=== PATIENT | male | born 1940 | race Caucasian/White ===

== ENCOUNTER → 2018-08-08 | Outpatient (CLI) | payer MEDICARE | LOC: M.RAD 15:38 | DX: M47.899 Other spondylosis, site unspecified (principal); L92.9 Granulomatous disorder of the skin and subcutaneous tissue, unspecified; J02.9 Acute pharyngitis, unspecified ==

== ENCOUNTER 2019-09-04 16:41 | Inpatient (IN) | payer MEDICARE ==
[~2019-09-04] VITALS: Ht 185.4 cm; Wt 109.7 kg
[2019-09-04 16:45] VITALS: BP 158/119
[2019-09-04 17:11] LABS: ABSOLUTE BASOPHILS 0.1 thou/uL (0.0-0.2); ABSOLUTE EOSINOPHILS 0.1 thou/uL (0.0-0.7); ABSOLUTE MONOCYTES 0.8 thou/uL (0.0-1.2); ABSOLUTE NEUTROPHILS 3.7 thou/uL (1.6-8.1); BASOPHILS 1.2 %; HEMATOCRIT 47.7 % (42.0-52.0); HEMOGLOBIN 16.3 gm/dL (14.0-18.0); LYMPHOCYTES 17.9 %; MCH 32.5 pg (26.0-34.0); MCHC 34.2 g/dL (28.0-37.0); MCV 95.1 fL (80.0-100.0); MONOCYTES 13.9 %; MPV 9.5 fl. (7.2-11.1); NUCLEATED RBCS 0 /100WBC; PLATELET COUNT* 150 thou/uL (150-400); RBC 5.01 mil/uL (4.50-6.00); RDW-CV 13.8 % (10.5-14.5); WBC 5.6 thou/uL (4.0-11.0)
[2019-09-04 17:22] LABS: APTT 27.7 Seconds (25.0-31.3); PROTIME 10.7 Seconds (9.20-11.50)
[2019-09-04 17:23] LABS: CALCIUM 8.4 mg/dL (8.5-10.1); CREATININE 1.1 mg/dL (0.6-1.3); POTASSIUM 4.4 mmol/L (3.5-5.1)
[2019-09-04 17:37] LABS: ALBUMIN 3.8 g/dL (3.4-5.0); CK-MB MASS 3.8 ng/mL (<0.5-3.6); MAGNESIUM 2.1 mg/dL (1.8-2.4); TOTAL PROTEIN 7.3 g/dL (6.4-8.2)
[2019-09-04 19:45] VITALS: BP 159/119
[2019-09-04 20:00] VITALS: BP 163/115; BP 171/122
[2019-09-05] VITALS (7 sets, daily range): BP systolic 127–158; BP diastolic 88–108
--- NOTE | 2019-09-05 04:16 | NUR ---
RECEIVED PT FROM ED PER CART AT APPROX 195. PT IS AWAKE AND ORIENTED X4, CAN BE FORGETFUL AT TIMES. 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 PT DENIES CHEST PAIN OF THIS TIME-STATED HE FEELS A LITTLE PRESSURE IN THE CHEST THAT IS BETTER THAN WHAT IT WAS. ADMISSION ASSESSMENT DONE AND CHARTED. PT IS ADVISED ON THE USE OF CALL LIGHT AND ON THE ROOM SET UP. PT IS ADVISED TO HAVE NOTHING BY MOUTH PER CARDIOLOGY. CALL LIGHT WITHIN REACH. HOURLY ROUNDING DONE FOR PT SAFETY. FALL PRECAUTIONS IN PLACE.
[2019-09-05 05:21] LABS: CHOLESTEROL 140 mg/dL (<200); HDL CHOLESTEROL 23 mg/dL (>40); LDL CHOLESTEROL 75 mg/dL (<100); TC:HDL 6.1 Ratio (Not establshd); TRIGLYCERIDE 213 mg/dL (<150); VLDL 43 mg/dL (<40)
[2019-09-05 05:28] LABS: SERUM ASSESSMENT Clear
--- NOTE | 2019-09-05 11:05 | EKG ---
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 : 1940 Requested By: Geoffrey Freitas Order Number: [id number] MD: Jonathan Pan Measurements Intervals [place] Rate: 115 P: 94 WI: 119 QRS: -18 QRSD: 92 T: 58 QT: 374 QTc: 518 Interpretive Statements atrial tachycardia Borderline left axis deviation Prolonged QT interval Baseline wander in lead(s) V3,V5 No previous ECG available for comparison Electronically Signed On 09-05-2019 11:04:03 COMMERCIAL CRABBER by Jonathan Pan [email or web address] <ELECTRONICALLY SIGNED> By: Jonathan Pan MD, FAC 09/05/19 1104 1646 1646 Jonathan Pan MD, [facility] /EPI
--- NOTE | 2019-09-05 11:28 | 2DMMODE ---
[place] [address] 2 D/M-MODE ECHOCARDIOGRAM Name: CALVILLOGIACOMO H Room: [address] IN [facility]#: [id number] Admission: 09/04/19 Attend Phys: Augie Thorne, Discharge: Date of : 40 Date of Service: 09/05/19 1127 Report #: [id number] THIS REPORT FOR: cc: Jonathan Fortune MD, David L. MD Liston, Michael J. MD [facility] ~ APPROVED REPORT Study performed: 09/05/2019 09:33:41 EXAM: Comprehensive 2D, Doppler, and color-flow Echocardiogram Patient Location: In-Patient Room #: [facility] Status: routine BSA: 2.33 HR: 113 bpm BP: 144/108 mmHg Rhythm: NSR Other Information Study Quality: Good Indications Chest Pain 2D Dimensions IVSd: 14.52 (7-11mm) LVOT Diam: 21.81 (18-24mm) LVDd: 52.48 mm PWd: 13.68 (7-11mm) Ascending Ao: 36.83 (22-36mm) LVDs: 40.01 (25-40mm) Aortic Root: 34.75 mm LV Single Plane 4CH: 27.04 % LV Single Plane 2CH: 19.98 % Volumes Left Atrial Volume (Systole) LA ESV Index: 45.10 mL/m2 Aortic Valve AoV Peak Dom.: 0.86 m/s AO Peak Gr.: 2.93 mmHg LVOT Max P.31 mmHg AO Mean Gr.: 1.84 mmHg LVOT Mean P.06 mmHg LVOT Max V: 0.76 m/s AO V2 VTI: 11.42 cm LVOT Mean V: 0.47 m/[place] [address] 2 D/M-MODE ECHOCARDIOGRAM Name: GIACOMO CALVILLO Room: [address]#: [id number] Admission: 09/04/19 Attend Phys: Augie Thorne, Discharge: Date of : 40 Date of Service: 09/05/19 1127 Report #: [id number] DARLEEN (VTI): 3.66 cm2 LVOT V1 VTI: 11.20 cm Pulmonary Valve PV Peak Dom.: 0.90 m/s PV Peak Gr.: 3.23 mmHg Tricuspid Valve RAP Estimate: 5.00 mmHg TR Peak Gr.: 30.94 mmHg RVSP: 35.00 mmHg PA Pressure: 35.00 mmHg Left Ventricle The left ventricle is normal size. There is global hypokinesis of the left ventricle. Mild to moderate concentric left ventricular hypertrophy. Left ventricular systolic function is mildly decreased. LVEF is 40-45%. This study is not technically sufficient to allow evaluation of the LV diastolic function. Right Ventricle Right ventricle is mildly dilated. The right ventricular systolic function is normal. Atria Left atrium is moderately dilated. Right atrium is moderately dilated. Aortic Valve The aortic valve is normal in structure. Mild aortic regurgitation. There is no aortic valvular stenosis. Mitral Valve The mitral valve is normal in structure. Mild mitral regurgitation. No evidence of mitral valve stenosis. Tricuspid Valve The tricuspid valve is normal in structure. Mild tricuspid regurgitation. Mild pulmonary hypertension. The RVSP is 38 mmHg. Pulmonic Valve The pulmonary valve is normal in structure. Mild pulmonic regurgitation. Great Vessels The aortic root is normal in size. IVC is normal in size and collapses >50% [place] [address] 2 D/M-MODE ECHOCARDIOGRAM Name: GIACOMO CALVILLO Room: [address]#: [id number] Admission: 09/04/19 Attend Phys: Augie Thorne, Discharge: Date of : 40 Date of Service: 09/05/19 1127 Report #: [id number] Pericardium There is no pericardial effusion. <Conclusion> The left ventricle is normal size. Mild to moderate concentric left ventricular hypertrophy. Left ventricular systolic function is mildly decreased. LVEF is 40-45%. There is global hypokinesis of the left ventricle. Right ventricle is mildly dilated. Left atrium is moderately dilated. Right atrium is moderately dilated. Mild aortic regurgitation. Mild mitral regurgitation. Mild tricuspid regurgitation. Mild pulmonary hypertension. The RVSP is 38 mmHg. IVC is normal in size and collapses >50% with inspiration. <ELECTRONICALLY SIGNED> By: Nicholas Shirley MD, FACC 09/05/19 1127 1127 1127 Nicholas Shirley MD, FACC /INF
--- NOTE | 2019-09-05 14:04 | NUR ---
ASSUMED CARE OF PATIENT THIS AM AT 0730. PATIENT IS ALERT AND ORIENTED X 4. HE DENIES PAIN, BUT STATES HE HAS MILD CHEST HEAVINESS. TELE SHOWS A FLUTTER WITH 2 TO 1 CONDUCTION. HIS BLOOD PRESSURE IS SLIGHTLY ELEVATED. PATIENT DENIES EDWARDS AND BLURRED VISION. PATIENT SEEN BY CARDIOLOGY NURSE. BEDSIDE ECHO DONE. PATIENT IS TAKING HIS DIET WELL. WILL CONTINUE TO MONITOR VS AND CARDIACE MONITORING.
--- NOTE | 2019-09-05 14:28 | NUR ---
Pt with ST, will attempt to assess later
[2019-09-06] VITALS (12 sets, daily range): BP systolic 90–145; BP diastolic 53–104
[2019-09-06 05:12] LABS: HEMATOCRIT 46.4 % (42.0-52.0); HEMOGLOBIN 15.6 gm/dL (14.0-18.0); MCH 32.3 pg (26.0-34.0); MCHC 33.6 g/dL (28.0-37.0); MCV 96.1 fL (80.0-100.0); MPV 9.3 fl. (7.2-11.1); RBC 4.83 mil/uL (4.50-6.00); RDW-CV 13.8 % (10.5-14.5); WBC 6.8 thou/uL (4.0-11.0)
--- NOTE | 2019-09-06 05:12 | NUR ---
ASSUMED PT CARE AT APPROX 1930. PT IS AWAKE AND ORIENTED X4-FORGETFUL. 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 ASSESSMENT DONE AND CHARTED. PT VERBALIZED FEELING "UNCOMFORTABLE AND FUNNY IN THE CHEST" BUT DENIES THAT IT IS CHEST PAIN. PT WAS ABLE TO REST AND SLEEP AFTER BENADRYL AND MELATONIN GIVEN PER SEP. PT IS CLOSELY MONITORED. CALL LIGHT WITHIN REACH.
[2019-09-06 05:22] LABS: CALCIUM 8.3 mg/dL (8.5-10.1); CREATININE 1.1 mg/dL (0.6-1.3); POTASSIUM 4.4 mmol/L (3.5-5.1)
--- NOTE | 2019-09-06 08:15 | NUR ---
Pt is A&O. Resides at home alone at [facility]. Active and independent. No DME. No hx of HH or SNF. Goal is home at [place], no needs anticipated. Following.
--- NOTE | 2019-09-06 10:27 | EKG ---
[place] [address] ELECTROCARDIOGRAM REPORT Name: GIACOMO CALVILLO Room: [address] ADM IN .R.#: [id number] Admission: 09/04/19 Attend Phys: Augie Thorne, Discharge: Date of : 40 Date of Service: 09/05/19 1634 Report #: [id number] THIS REPORT FOR: //name// 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 : 1940 Requested By: Michell Saini Order Number: [id number] Raoul MD: Jonathan Pan Measurements Intervals [place] Rate: 73 P: HI: QRS: -30 QRSD: 97 T: 6 QT: 433 QTc: 478 Interpretive Statements Atrial flutter Left axis deviation Compared to ECG 09/04/2019 16:46:58 rate has slowed Prolonged QT interval no longer present Electronically Signed On 09-06-2019 10:26:44 FUDGER by Jonathan Pan [email or web address] <ELECTRONICALLY SIGNED> By: Jonathan Pan MD, FAC 09/06/19 1026 1634 1634 Jonathan Pan MD, [facility] /EPI
[2019-09-07 00:19] VITALS: BP 113/71
[2019-09-07 02:07] LABS: GLYCOHEMOGLOBIN (HGB A1C) 6.3 % (4.8-5.6)
[2019-09-07 04:23] VITALS: BP 115/77
--- NOTE | 2019-09-07 05:53 | NUR ---
ASSUMED PT CARE AT APPROX 1930. PT IS AWAKE AND ORIENTED X4-FORGETFUL. 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 PT DENIES PAIN/DISCOMFORT OF THIS TIME. PT IS ABLE TO SLEEP THROUGH THE NIGHT. CALL LIGHT WITHIN REACH. HOURLY ROUNDING DONE FOR PT SAFETY. FALL PRECAUTIONS IN PLACE.
[2019-09-07 08:00] VITALS: BP 151/82
--- NOTE | 2019-09-07 09:24 | TEE ---
[place] [address] TRANSESOPHAGEAL ECHOCARDIOGRAM Name: CALVILLOGIACOMO Samra Room: [address] IN [facility]#: [id number] Admission: 09/04/19 Attend Phys: Augie Thorne, Discharge: Date of : 40 Date of Service: 09/07/19 0923 Report #: [id number] THIS REPORT FOR: cc: Jonathan Fortune MD, David L. MD [place], Michael J. MD [facility] ~ APPROVED REPORT Study performed: 09/06/2019 11:48:32 EXAM: Transesophageal Echocardiogram Patient Location: In-Patient Room #: [facility] Status: routine BSA: 2.35 HR: 107 bpm BP: 124/88 mmHg Rhythm: Atrial Fibrillation Other Information Study Quality: Good Indications Atrial Fibrillation Echo Enhancing Agent Indication: Rule out Shunt Agent(s) / Amount(s) Used: Agitated Saline 10 cc Procedure After obtaining informed consent, patient underwent transesophageal echo in the Service Station Manager Holding. Type of Sedation : Conscious Sedation Sedation was administered by Gayatri Zapata RN. Sedation start time: 1211 Case end Time: 1228 Sedation was achieved intravenously with: Versed (4) Fentanyl (100) Transesophageal probe was inserted and advanced into esophagus without difficulty by Nicholas Shirley MD, FACC. Echo enhancement indication: R/O Septal defect. Echo enhancement agent administered: Agitated Saline The REIM was performed without complications. Synchronized Cardioversion acheived with 300 Joules after 1 attempt([place] [address] TRANSESOPHAGEAL ECHOCARDIOGRAM Name: KARLIGIACOMO Samra Room: [address] IN [facility]#: [id number] Admission: 09/04/19 Attend Phys: Augie Thorne, Discharge: Date of : 40 Date of Service: 09/07/19 0923 Report #: [id number] Rhythm following Synchronized Cardioversion: Normal Sinus Rhythm Throughout the procedure, the blood pressure, pulse oximetry, cardiac rhythm, and rate were monitored. The patient tolerated the procedure without adverse effects. Recovery from conscious sedation was uneventful and vital signs were stable. Left Ventricle The left ventricle is normal size. There is global hypokinesis of the left ventricle. There is normal left ventricular wall thickness. Left ventricular systolic function is mildly decreased. LVEF is 45-50%. Right Ventricle The right ventricle is normal size. The right ventricular systolic function is normal. Atria No thrombus is visualized in the left atrium or appendage. The left atrium size is normal. Injection of contrast documented no interatrial shunt. The right atrium size is normal. Aortic Valve The aortic valve is normal in structure. Trace aortic regurgitation. There is no aortic valvular stenosis. Mitral Valve The mitral valve is normal in structure. Mild mitral regurgitation. No evidence of mitral valve stenosis. Tricuspid Valve The tricuspid valve is normal in structure. Mild tricuspid regurgitation. Pulmonic Valve The pulmonary valve is normal in structure. There is no pulmonic valvular regurgitation. Great Vessels The aortic root is normal in size. Pericardium There is no pericardial effusion. <Conclusion> The left ventricle [place] [address] TRANSESOPHAGEAL ECHOCARDIOGRAM Name: GIACOMO CALVILLO Room: [address] IN [facility]#: [id number] Admission: 09/04/19 Attend Phys: Augie Thorne, Discharge: Date of : 40 Date of Service: 09/07/19922 Report #: [id number] There is normal left ventricular wall thickness. Left ventricular systolic function is mildly decreased. LVEF is 45-50%. There is global hypokinesis of the left ventricle. No thrombus is visualized in the left atrium or appendage. Trace aortic regurgitation. Mild mitral regurgitation. Mild tricuspid regurgitation. Injection of contrast documented no interatrial shunt. <ELECTRONICALLY SIGNED> By: Nicholas Shirley MD, [facility] 09/07/19922 2 Nicholas Shirley MD, FACC /INF
[2019-09-07] MEDS ORDERED: LIPITOR 40 MG T40 M1 PO (10:55)
[2019-09-07] MEDS ORDERED: VITAMIN B-121000 MC2 SUBLING (10:55)
[2019-09-07] MEDS ORDERED: SORINE 80 MG TA80 M1 PO (10:55)
[2019-09-07] MEDS ORDERED: ADULT LOW DOSE81 MG PO (10:55)
[2019-09-07] MEDS ORDERED: LISINOPRIL2.5 MG PO (10:55)
[2019-09-07] MEDS ORDERED: XARELTO20 MG PO (10:55)
[2019-09-07] MEDS ORDERED: VITAMIN D35000 UNI2 PO (10:55)
[2019-09-07] MEDS ORDERED: NITROSTAT0.4 M1 SUBLING (10:57)
--- NOTE | 2019-09-07 14:17 | EKG ---
[place] [address] ELECTROCARDIOGRAM REPORT Name: GIACOMO CALVILLO Room: [address] ADM IN .R.#: [id number] Admission: 09/04/19 Attend Phys: Augie Thorne, Discharge: Date of : 40 Date of Service: 09/07/19 0842 Report #: [id number] THIS REPORT FOR: //name// [facility] Test Date: 2019-09-07 Test Time: 08:42:01 Pat Name: GIACOMO CALVILLO Department: Room: [address] Gender: M Order Caller: : 1940 Requested By: Michell Saini Order Number: [id number] Reading MD: Jonathan Pan Measurements Intervals [place] Rate: 56 P: 69 NE: 245 QRS: 18 QRSD: 109 T: 36 QT: 544 QTc: 526 Interpretive Statements Sinus rhythm Atrial premature complex Prolonged NE interval Prolonged QT interval Compared to ECG 09/05/2019 16:34:16 Prolonged QT interval now present Atrial flutter no longer present Electronically Signed On 09-07-2019 14:16:37 PURCHASING ENGINEER by Jonathan Pan [email or web address] <ELECTRONICALLY SIGNED> By: Jonathan Pan MD, [facility] 09/07/19 1416 0842 0842 Jonathan Pan MD, [facility] /EPI
--- NOTE | 2019-09-07 18:00 | NUR ---
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 PT WAS TO DC HOME THIS SHIFT BUT BEGAN C/O "PRESSURE FROM ABDOMEN TO CHEST" THAT IS NOW MAKING HIM FEEL "ANXIOUS" OR "PANICKY". CARDIOLOGY NOTIFIED, NEW ORDERS RECVD, PT TO HAVE STRESS TEST IN AM, PT AND FAMILY EDUCATED ON NPO STATUS AT MIDNIGHT. WILL NOT DC UNTIL LATER TIME, FAMILY NOTIFIED, HOURLY ROUNDING COMPLETED.
[2019-09-08] VITALS: BP 139/89
[2019-09-08 04:00] VITALS: BP 124/88
--- NOTE | 2019-09-08 04:36 | NUR ---
PATIENT HAS REMAINED ALERT AND ORIENTED X 4 THROUGHOUT THE SHIFT AND RESTING AT INTERVALS ON HOURLY ROUNDS. STATED ABDOMINAL PRESSURE TO EPIGASTRIC AREA X 1 DURING THE NIGHT. MYLANTA PROVIDED AND PATIENT WAS ABLE TO GO TO SLEEP. VITAL SIGNS STABLE. HEART MONITOR SHOWS SINUS RHYTHM TO SINUS INES AND BBB. HAS DENIED CHEST PAIN. UP INDEPENDENTLY IN THE ROOM. CONITNUE TO MONITOR.
[2019-09-08 08:00] VITALS: BP 140/104
[2019-09-08 12:51] VITALS: BP 135/75
[2019-09-08 13:49] LABS: ABSOLUTE LYMPHOCYTES 0.9 thou/uL (0.8-5.3); ABSOLUTE MONOCYTES 0.6 thou/uL (0.0-1.2); ABSOLUTE NEUTROPHILS 6.8 thou/uL (1.6-8.1); BASOPHILS 0.3 %; EOSINOPHILS 0.3 %; HEMATOCRIT 46.1 % (42.0-52.0); HEMOGLOBIN 15.7 gm/dL (14.0-18.0); LYMPHOCYTES 11.2 %; MCH 32.6 pg (26.0-34.0); MCHC 34.2 g/dL (28.0-37.0); MCV 95.4 fL (80.0-100.0); MONOCYTES 7.4 %; MPV 10.9 fl. (7.2-11.1); NUCLEATED RBCS 0 /100WBC; PLATELET COUNT* 148 thou/uL (150-400); POLYS 80.8 %; RBC 4.83 mil/uL (4.50-6.00); RDW-CV 13.5 % (10.5-14.5); WBC 8.4 thou/uL (4.0-11.0)
[2019-09-08 13:59] LABS: ALBUMIN 3.7 g/dL (3.4-5.0); CALCIUM 8.3 mg/dL (8.5-10.1); CREATININE 1.2 mg/dL (0.6-1.3); POTASSIUM 4.1 mmol/L (3.5-5.1); TOTAL BILIRUBIN 2.1 mg/dL (<0.1-1.0); TOTAL PROTEIN 7.3 g/dL (6.4-8.2)
[2019-09-08 15:57] VITALS: BP 125/83
--- NOTE | 2019-09-08 16:34 | CARDNUC ---
[place] [address] CARDIAC NUCLEAR IMAGING REPORT Name: CALVILLOGIACOMO Samra Room: [address] IN [facility]#: [id number] Admission: 09/04/19 Attend Phys: Augie Thorne, Discharge: Date of : 40 Date of Service: 09/08/19 1633 Report #: [id number] THIS REPORT FOR: cc: Jonathan Fortune MD, David L. MD [place], Michael J. MD [facility] ~ APPROVED REPORT Study performed: 09/07/2019 14:41:00 Indication: Chest pain Patient Location: In-Patient Room #: [facility] Stress Tech: Judy Baumann Stress Nurse: Hermelinda Hurt RN Ht: 6 ft 1 in Wt: 241 lbs BSA: 2.33 m2 BMI: 31.79 Medical History Medical History: Arrhythmia, HTN, Hyperlipidemia, a flutter Medications: asa-81, atorvastatin, lisinopril, rivaroxaban, sotalol Allergies: No known drug allergies Cardiac Risk Factors: Age, Hyperlipidemia, HTN Exercise History: Sedentary Resting Data Rest SPECT myocardial perfusion imaging was performed in supine position 30 minutes following the intravenous injection of 30.9 mCi of Tc-99m Sestamibi. Time of rest injection: 16:05 Date: 09/07/2019 The images were gated to evaluate regional wall motion and calculate left ventricular ejection fraction. Administration Route: IV Administration Site: Right Hand Pharmacologic Stress Pharmacologic stress test was performed by injecting Regadenoson 0.4 mg IV push over 10-15 seconds immediately followed by the intravenous injection of 30.4 mCi of Tc-99m Sestamibi. Time of stress injection: 10:50 Date: 09/08/2019 Administration Route: [place] [address] CARDIAC NUCLEAR IMAGING REPORT Name: GIACOMO CALVILLO Room: [address] IN [facility].#: [id number] Admission: 09/04/19 Attend Phys: Augie Thorne, Discharge: Date of : 40 Date of Service: 09/08/19 1633 Report #: [id number] Administration Site: Left Arm Heart Rate at time of stress injection: 82 bpm. Gated Stress SPECT was performed 40 minutes after stress injection. The images were gated to evaluate regional wall motion and calculate left ventricular ejection fraction. Prone imaging was performed. Stress Test Details Stress Test: Pharmacologic stress testing performed using 0.4 mg of regadenoson per 5 mL given IV over 10 seconds. Reason for pharmacologic stress test: physical limitation. HR Max Heart Rate (APMHR): 142 bpm Resting HR: 74 bpm Target HR (85% APMHR): 120 bpm Max HR Achieved: 82 bpm % of APMHR: 57 Recovery HR: 75 bpm BP Resting BP: 129/98 mmHg Max BP: 148/81 mmHg Recovery BP: 145/86 mmHg ECG Resting ECG: Sinus Rhythm Stress ECG: Sinus Rhythm ST Change: None Arrhythmia: None Recovery ECG: Sinus Rhythm Recovery ST Change: None Recovery Arrhythmia: None Clinical Reason for Termination: Completed protocol Exercise duration: 0 min sec Exercise capacity: 1 METs The patient tolerated Lexiscan infusion without significant cardiac symptoms. Nurse Comments pt too unsteady on feet to walk on treadmill Stress ECG Conclusion The baseline 12-lead EKG shows sinus rhythm without significant ST segment abnormality. EKGs obtained during and post Lexiscan future sinus rhythm withST segment changes when compared to [place] [address] CARDIAC NUCLEAR IMAGING REPORT Name: CALVILLO,GIACOMO Samra Room: [address]#: [id number] Admission: 09/04/19 Attend Phys: Augie Thorne, Discharge: Date of : 40 Date of Service: 09/08/19 1633 Report #: [id number] were no stress-induced arrhythmias. Study Quality Study: Good Artifact: No artifact Study Data At rest, the left ventricular ejection fraction was 40%.. Post stress, the left ventricular ejection was 39%.. TID = 1.04. Perfusion Perfusion images obtained at rest and post Lexiscan stress show uniform uptake of the radioisotope throughout the myocardium without defect. Wall Motion There is global hypokinesis. Nuclear Conclusion ECG Findings: negative for ischemia Clinical Findings: negative for ischemia Nuclear Findings: negative for ischemia Exercise Capacity: not assessed Left Ventricular Function: abnormal Myocardial perfusion images show no defect to suggest infarct or ischemia. Left ventricular systolic function is mildly decreased with global hypokinesis. This is not a high risk study. <Conclusion> The baseline 12-lead EKG shows sinus rhythm without significant ST segment abnormality. EKGs obtained during and post Lexiscan future sinus rhythm withST segment changes when compared to baseline. There were no stress-induced arrhythmias. <ELECTRONICALLY SIGNED> By: Nicholas Shirley MD, FACC 09/08/19 1633 1633 1633 Nicholas Shirley MD, FACC /INF
[2019-09-08 20:00] VITALS: BP 120/70
[2019-09-09] VITALS: BP 98/63
[2019-09-09 04:00] VITALS: BP 122/81
--- NOTE | 2019-09-09 04:16 | NUR ---
ASSUMED CARE AT 1900H, 0N RA AND TOLERATED.NO CHEST PAIN AND NO DISTRESS NOTED.NO CONFUSION.POSSIBLE D/C TODAY.CONTINUE MONITORING AND TOWARDS CARE.
[2019-09-09 08:00] VITALS: BP 124/85
[2019-09-09 12:12] VITALS: BP 94/56
[2019-09-09] MEDS ORDERED: FUROSEMIDE 40 M40 MG PO (12:36)
[2019-09-09 13:18] LABS: URINE BILIRUBIN NEGATIVE (Negative); URINE BLOOD TRACE (Negative); URINE CLARITY CLEAR; URINE COLOR YELLOW; URINE GLUCOSE-RANDOM NEGATIVE (Negative); URINE KETONES NEGATIVE (Negative); URINE LEUKOCYTES-REFLEX NEGATIVE (Negative); URINE NITRITE-REFLEX NEGATIVE (Negative); URINE PROTEIN NEGATIVE (Negative); URINE UROBILINOGEN 0.2 E.U./dl (0.2-1.0)
--- NOTE | 2019-09-09 14:40 | NUR ---
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 PT DISCHARGED AT APPROX 1440 WITH SON. EDUCATED ON ALL DISCHARGE INSTRUCTIONS INCLUDING MEDICATIONS AND FOLLOW UP APPOINTMENTS. IV AND FOOD HANDLER REMOVED, HOURLY ROUNDING COMPLETED.
== END 2019-09-09 14:40 | disposition home or self-care (01) | DRG 69 ==
LOC: M.ERS 16:41 → M.2W 17:43 → M.TBA-ER 17:43 → M.2W 19:41
PROVIDERS: Family Medicine; Internal Medicine; ADMIT Internal Medicine
PROC: B24BZZ4 Ultrasonography of Heart with Aorta, Transesophageal (ICD-10-PCS; principal; 2019-09-06)
DX: G45.9 Transient cerebral ischemic attack, unspecified (principal); I50.21 Acute systolic (congestive) heart failure; I25.110 Atherosclerotic heart disease of native coronary artery with unstable angina pectoris; G93.40 Encephalopathy, unspecified; J84.9 Interstitial pulmonary disease, unspecified; I48.92 Unspecified atrial flutter; I48.20 Chronic atrial fibrillation, unspecified; I43 Cardiomyopathy in diseases classified elsewhere; E66.9 Obesity, unspecified; I48.91 Unspecified atrial fibrillation; E78.5 Hyperlipidemia, unspecified; E53.8 Deficiency of other specified B group vitamins; E55.9 Vitamin D deficiency, unspecified; I11.0 Hypertensive heart disease with heart failure; E78.1 Pure hyperglyceridemia; I16.0 Hypertensive urgency; G25.0 Essential tremor; Z82.49 Family history of ischemic heart disease and other diseases of the circulatory system; Z80.9 Family history of malignant neoplasm, unspecified; Z68.31 Body mass index [BMI] 31.0-31.9, adult

== ENCOUNTER → 2019-09-21 | Outpatient (CLI) | payer MEDICARE ==
[~2019-09-21] MED LIST: ADULT LOW DOSE81 MG PO; FUROSEMIDE 40 M40 MG PO; LIPITOR 40 MG T40 M1 PO; LISINOPRIL2.5 MG PO; NITROSTAT0.4 M1 SUBLING; SORINE 80 MG TA80 M1 PO; VITAMIN B-121000 MC2 SUBLING; VITAMIN D35000 UNI2 PO; XARELTO20 MG PO
[2019-09-21 11:56] LABS: ALBUMIN 3.9 g/dL (3.4-5.0); CALCIUM 8.7 mg/dL (8.5-10.1); CREATININE 1.2 mg/dL (0.6-1.3); POTASSIUM 4.5 mmol/L (3.5-5.1); TOTAL BILIRUBIN 1.8 mg/dL (<0.1-1.0); TOTAL PROTEIN 7.6 g/dL (6.4-8.2)
== END ==
LOC: M.LAB 11:04
PROVIDERS: Registered Nurse
DX: I48.92 Unspecified atrial flutter (principal)

== ENCOUNTER → 2019-10-05 | Outpatient (CLI) | payer MEDICARE ==
[2019-10-05] VITALS (9 sets, daily range): BP systolic 101–156; BP diastolic 69–113
[~2019-10-05] MED LIST changes: +SOTALOL120 MG PO
--- NOTE | ~2019-10-05 | CARD ---
[address] [address] CARDIAC CATH REPORT Name: GIACOMO CALVILLO Room: [facility]#: [id number] Admission: 10/05/19 Attend Phys: Nicholas Shirley MD Discharge: Date of : 40 Report #: [id number] THIS REPORT FOR: //name// cc: Jonathan Fortune MD, David L. MD ~ CC: Jonathan Shirley INDICATION: Recurrent atrial flutter. PROCEDURE: DC cardioversion. DESCRIPTION OF PROCEDURE: After informed consent was obtained, the patient was brought to the cardiac holding area. The patient was given intravenous Versed and fentanyl for conscious sedation. Once the patient was adequately sedated, he was cardioverted from atrial flutter to normal sinus rhythm with a single biphasic shock of 300 joules. The patient tolerated the procedure well and without complication. IMPRESSION: 1. Recurrent persistent atrial flutter. 2. Successful direct current cardioversion to normal sinus rhythm. By: 1226 1229Micbuffyl Yosvany Shirley MD, FACC /nt
[2019-10-05 11:34] LABS: HEMATOCRIT 46.4 % (42.0-52.0); HEMOGLOBIN 15.9 gm/dL (14.0-18.0); MCH 32.7 pg (26.0-34.0); MCHC 34.3 g/dL (28.0-37.0); MCV 95.3 fL (80.0-100.0); MPV 9.7 fl. (7.2-11.1); RBC 4.87 mil/uL (4.50-6.00); RDW-CV 13.7 % (10.5-14.5); WBC 7.4 thou/uL (4.0-11.0)
[2019-10-05 11:43] LABS: CALCIUM 8.5 mg/dL (8.5-10.1); CREATININE 1.2 mg/dL (0.6-1.3); POTASSIUM 4.6 mmol/L (3.5-5.1)
[2019-10-05 11:45] LABS: APTT 36.8 Seconds (25.0-31.3); INR 1.3
[2019-10-05 11:47] LABS: TOTAL BILIRUBIN 1.9 mg/dL (<0.1-1.0); TOTAL PROTEIN 7.6 g/dL (6.4-8.2)
--- NOTE | 2019-10-05 16:16 | EKG ---
[place] [address] ELECTROCARDIOGRAM REPORT Name: GIACOMO CALVILLO Room: [facility]#: [id number] Admission: 10/05/19 Attend Phys: Nicholas Shirley, Discharge: Date of : 40 Date of Service: 10/05/19 1135 Report #: [id number] THIS REPORT FOR: //name// [facility] Test Date: 2019-10-05 Test Time: 11:35:53 Pat Name: GIACOMO CALVILLO Department: Room: Gender: Sql Manager: : 1940 Requested By: Nicholas Shirley Order Number: [id number] Reading MD: Toro Monroy Measurements Intervals [place] Rate: 98 P: 75 PA: 177 QRS: -22 QRSD: 91 T: 4 QT: 425 QTc: 543 Interpretive Statements atrial flutter with variable block Borderline left axis deviation Consider anterior infarct Prolonged QT interval Compared to ECG 09/07/2019 08:42:01 Myocardial infarct finding now suggested Sinus rhythm no longer present Electronically Signed On 10-05-2019 16:15:09 CDT by Toro Monroy [email or web address] <ELECTRONICALLY SIGNED> By: Toro Monroy MD, [facility] 10/05/19 1615 1135 1135 Toro Monroy MD, [facility] /EPI
== END | disposition home or self-care (01) ==
LOC: M.CL 10:50
PROVIDERS: Internal Medicine Cardiovascular Disease
DX: I48.92 Unspecified atrial flutter (principal); Z79.01 Long term (current) use of anticoagulants; Z79.899 Other long term (current) drug therapy

== ENCOUNTER 2019-12-28 01:01 | Emergency (ER) | payer MEDICARE ==
[~2019-12-28] VITALS: Ht 188 cm; Wt 111.1 kg
[2019-12-28 03:01] VITALS: BP 162/87
== END 2019-12-28 03:01 | disposition home or self-care (01) ==
LOC: M.ERS 01:01
DX: K91.840 Postprocedural hemorrhage of a digestive system organ or structure following a digestive system procedure (principal); I48.91 Unspecified atrial fibrillation; I25.10 Atherosclerotic heart disease of native coronary artery without angina pectoris; I11.0 Hypertensive heart disease with heart failure; I50.9 Heart failure, unspecified; Z79.899 Other long term (current) drug therapy; Z79.82 Long term (current) use of aspirin